=== PATIENT | female | born 1935 | race Caucasian/White ===

== ENCOUNTER 2016-12-06 13:20 | Inpatient (IN) | payer MEDICARE, OTHER ==
[~2016-12-06] VITALS: Ht 170.2 cm; Wt 82.8 kg
[2016-12-06] VITALS (7 sets, daily range): BP systolic 104–129; BP diastolic 73–95; PULSE 96–128; RESP 18–24; O2SAT 90–95
--- NOTE | 2016-12-06 14:08 | ED.REPORT ---
HPI-General Illness Date of Service Dec 06, 2016 ED Provider: Celina Valero MD 81 year old female with CHF, high cholesterol, HTN, and hypothyroidism presents to the ER accompanied by her daughter complaining of acute on chronic shortness of breath, worsening over the past 9 days. Symptoms are exacerbated by laying flat. Associated symptoms include dyspnea and dizziness with minimal exertion. Patient denies chest pain, significant lower extremity swelling, recent medication changes, history of CA, or CVA, and anticoagulant use. Followed by Dr. Wilner Mccarty, Cardiology. Nursing Notes Stated Complaint: SHORTNESS OF BREATH Chief Complaint: Dysrhythmia/Cardiac Nursing Notes Reviewed: Yes Allergies: Coded Allergies: No Known Allergies (Unverified , 12/06/16) Scheduled Amlodipine (Amlodipine) 10 Mg Tablet 10 MG PO DAILY Ascorbic Acid (Vitamin C) 1,000 Mg Tab.chew 1,000 MG PO DAILY Aspirin Chew (Aspirin Chew) 81 Mg Chew 81 MG PO HS Atenolol (Atenolol) 50 Mg Tablet 50 MG PO DAILY Cholecalciferol (Vitamin D3) (Vitamin D3) 2,000 Unit Tablet 2,000 UNIT PO DAILY Enalapril Maleate (Enalapril Maleate) 10 Mg Tablet 10 MG PO BID Levothyroxine (Levothyroxine) 50 Mcg Tablet 50 MCG PO QAM Simvastatin (Simvastatin) 40 Mg Tablet 40 MG PO HS General Time Seen by MD: 14:04 Chief Complaint Other (Shortness of Breath) Hx Obtained From: Patient Arrived By: Walk-in Sudden in Onset?: No Onset Occurred: More than a week ago... (9 days) Symptom Duration: Since onset Associated with: Reports: Dizziness, Denies: Chest pain Similar Sx Previous: Yes Past Medical History Past Medical History Notes: Hydrology Teacher: Dr. Wilner Mccarty Past Medical History Denies history of CA Reports: Congestive heart failure, Hyperlipidemia (High cholesterol), Hypertension, Denies: Stroke, Transient ischemic attack Reports: Thyroid disease (Hypothyroid) Smoking History Unknown if Ever Smoker Social History Other Social History: Good social support Ambulatory Status Independent Review of Systems Full Review of Systems Constitutional: Denies: Chills, Fever Respiratory: Reports: Shortness of breath, Denies: Non-productive cough Cardiovascular: Denies: Chest pain GI: Denies: Nausea, Vomiting Musculoskeletal: Denies: Extremity swelling Skin: Denies Diaphoresis Neurologic: Reports: Dizziness, Denies: Headache Complete sys rev & neg: except as marked. Physical Exam Vital Signs Vital Signs Date Time Temp Pulse Resp B/P Pulse Ox O2 Delivery O2 Flow Rate FiO2 12/06/16 16:25 36.8 113 22 125/95 95 Nasal Cannula 1 12/06/16 13:22 36 128 20 128/86 91 Room Air Initial VS: Reviewed Head / Eyes: Atraumatic, Normocephalic Neck: Supple, Non-tender, Full range of motion Abdomen / GI: Soft, Non-tender, No guarding, No rebound, No distention Skin: Warm, Dry, No cyanosis Neurologic: Alert, Oriented, Nonfocal General/Constitutional: Awake, Alert, No acute distress, Well appearing, Well developed, Well hydrated, Well nourished, Cooperative Respiratory / Chest: No wheezing, No stridor, No chest tenderness, No chest wall deformity Crackles in the bases bilaterally, Right > Left. Cardiovascular: Heart rate NL, No murmurs Heart Rate / Rhythm: Positive: Irreg irregular rhythm Lower Ext Edema: Positive: Bilateral 1+ Upper Extremities Upper Extremity / MS: Inspection NL, No swelling, Non-tender, No erythema, No deformity, Neurologic intact, Vascular intact, No clubbing/cyanosis Interpretation & Diagnostics Lab Results Interpretation Result Diagram: 12/06/16 1425 12/06/16 1425 Test 12/06/16 14:25 White Blood Count 14.0th/mm3 (3.8-10.1) Red Blood Count 4.80mil/mm3 (3.90-5.20) Hemoglobin 15.0g/dL (12.0-15.6) Hematocrit 44.1% (35.0-46.0) Mean Corpuscular Volume 91.9fL (81-100) Mean Corpuscular Hemoglobin 31.3pg (27.0-35.0) Mean Corpuscular Hemoglobin Concent 34.0% (32.0-37.0) Red Cell Distribution Width 13.8% (12.3-15.4) Platelet Count 194bil/L (150-400) Neutrophils (%) (Auto) 82.1% (40-74) Lymphocytes (%) (Auto) 9.6% (14-46) Monocytes (%) (Auto) 7.6% (4-12) Eosinophils (%) (Auto) 0.1% (0-5) Basophils (%) (Auto) 0.4% (0-3) Sodium Level 131mEq/L (134-144) Potassium Level 5.1mEq/L (3.5-5.2) Chloride Level 91mEq/L (97-108) Carbon Dioxide Level 18mmol/L (18-29) Blood Urea Nitrogen 16mg/dL (8-27) Creatinine 0.79mg/dL (0.57-1.00) Estimat Glomerular Filtration Rate 100mL/min (>59) Glucose Level 115mg/dL (60-99) Calcium Level 10.0mg/dL (8.5-10.1) Total Bilirubin 2.2mg/dL (0.0-1.2) Aspartate Amino Transf (AST/SGOT) 29U/L (0-50) Alanine Aminotransferase (ALT/SGPT) 18U/L (0-32) Alkaline Phosphatase 64U/L (25-165) Troponin T < 0.010ug/L (0.0-0.011) Pro-B-Type Natriuretic Peptide 4613pg/mL (0-738) Total Protein 7.8g/dL (6.4-8.4) Albumin 4.9g/dL (3.4-5.0) Thyroid Stimulating Hormone (TSH) 2.640uIU/mL (0.450-4.500) ECG Interpretation ECG Interpretation: New atrial fibrillation, rate 111 Time: 14:17 Interpreted by: ED physician X-Ray Chest Interpretation Chest Xray Interpretation: IMPRESSION: 1. Bibasilar atelectasis versus pneumonia associated with small bilateral pleural effusions. Dictated by: Elenita Dooley M.D. on 12/06/2016 at 14:34 Approved by: Elenita Dooley M.D. on 12/06/2016 at 14:35 View: Portable, 1 view Interpretation / Wet Read by: Interpret - Radiologist Re-Eval/Medical Decision Med Decision/Clinical Course Increasing shortness of breath over the last 9 days. Atrial fibrillation noted today. Bilateral pleural effusions noted. White count is elevated possibility of pneumonia is also entertained. She does not appear to be septic she does appear to be in congestive heart failure likely rate related. In the emergency department she was given IV Lasix and antibiotics were started for presumed community-acquired pneumonia. Source of Hx: Old records Time of Eval: 14:21 Re-Evaluation/Progress Note: Discussed physical examination findings and need for admission. Patient is amenable to the plan. All other questions addressed. Consultation : Consulted With: Hospitalist Call Returned at: 16:35 Regional Geodetic Advisor: Agrees with eval, Agrees with plan, Accepts admit Counseled Regarding: Diagnosis, Lab results, Need for admission Discharge & Departure Primary Impression: CHF (congestive heart failure) Additional Impressions: Bilateral pneumonia SOB (shortness of breath) New onset atrial fibrillation Ruled Out: Sepsis Disposition: ADMITTED TO HOSPITAL Discharge Condition All VS Reviewed: Yes Condition: Stable Referrals: NOPCP (PCP) Wilner Mccarty MD (Family) Jeffrey Attestation Portions of this note were transcribed by Nikolas Cruz. I, Dr. Valero, personally performed the history, physical exam and medical decision-making; I reviewed and confirmed the accuracy of the information in the transcribed note. Signed by: Jeffrey Jara, 12/06/2016 and 15:01 copies to: Wilner Mccarty MD, Shawna L MD Dec 06, 2016 14:08 NIKOLAS CRUZ Dec 06, 2016 14:13
[2016-12-06] MEDS ORDERED: Furosemide 10 mg/mL 4 mL Inj IVPUSH ONE (14:35)
--- NOTE | 2016-12-06 14:36 | DRSVH ---
PROCEDURE: X-RAY CHEST ONE VIEW, PORTABLE ([id number]) INDICATIONS: dysrhythmia TECHNIQUE: One view of the chest was acquired. COMPARISON: None. FINDINGS: Surgical changes and devices: None. Lungs and pleura: No pneumothorax. Small bilateral pleural effusions. Moderate bibasilar airspace op acity. Mediastinum: Mediastinal contours appear normal. Heart contours are not well seen. Bones and chest wall: No suspicious bony lesions. Overlying soft tissues appear unremarkable. IMPRESSION: 1. Bibasilar atelectasis versus pneumonia associated with small bilateral pleural effusions. Dictated by: Elenita Dooley M.D. on 12/06/2016 at 14:34 Approved by: Elenita Dooley M.D. on 12/06/2016 at 14:35
[2016-12-06 14:37] LABS: BASOPHILS % (AUTO) 0.4 % (0-3); EOSINOPHILS % (AUTO) 0.1 % (0-5); MONOCYTES % (AUTO) 7.6 % (4-12); Mean Corpuscular Hemoglobin 31.3 pg (27.0-35.0); Mean Corpuscular Volume 91.9 fL (81-100); NEUTROPHILS % (AUTO) 82.1 % (40-74); Platelet Count 194 bil/L (150-400)
[2016-12-06] MEDS ORDERED: cefTRIAXone Inj 2,000 MG in Dextrose 5% Minibag Plus 50 ML IV ONE (15:00)
[2016-12-06] MEDS ORDERED: Azithromycin Inj 500 MG in Dextrose 5% w/Vial Mate 250 ML IV ONE (15:00)
[2016-12-06] MEDS ORDERED: MeTOProlol 1 mg/mL 5 mL Inj IVPUSH STA (15:01)
[2016-12-06 15:06] LABS: TROPONIN T < 0.010 ug/L (0.0-0.011)
[2016-12-06] MEDS ORDERED: ASPI81TA3 PO (15:49)
[2016-12-06] MEDS ORDERED: LEVO50TA6 PO (15:49)
[2016-12-06] MEDS ORDERED: ATEN50TA PO (15:49)
[2016-12-06] MEDS ORDERED: ASCO100089 PO (15:49)
[2016-12-06] MEDS ORDERED: ENAL10TA PO (15:49)
[2016-12-06] MEDS ORDERED: SIMV40TA5 PO (15:49)
[2016-12-06] MEDS ORDERED: AMLO10TA3 PO (15:49)
[2016-12-06] MEDS ORDERED: CHOL200025 PO (15:49)
[2016-12-06] MEDS ORDERED: Ondansetron 2 mg/mL 2 mL Inj IVPUSH PRN (16:40)
[2016-12-06] MEDS ORDERED: Alum-Mag Hydrox-Simeth 30 mL Suspension PO PRN (16:40)
[2016-12-06] MEDS ORDERED: Polyethylene Glycol (PEG) 17 Gm Powder PO PRN (16:40)
--- NOTE | 2016-12-06 17:26 | NUR ---
Admission Pt arrived on [facility] to rm 3005. A/Ox3, no complains of increased pain, chest discomfrt/pressure. Reports SOB with activity. 1 L O2. Oriented to call light visiting hours. Angy, (daughter) will be ride home at discharge.
--- NOTE | 2016-12-06 17:47 | PCM.HPMED ---
Subjective Date of Service Dec 06, 2016 Primary Provider: Admitting Physician: Eljiah Ponce Primary Care Physician: Nell Lamar MD Attending Physician: Elijah Ponce Chief Complaint: Shortness of breath History of Present Illness: Claudia is a pleasant 81-year-old female with history of CHF, dilated cardiomyopathy, hypothyroidism, and hypertension who presented to the ED with complaints of progressive shortness of breath over last 2 weeks but worse in the last 5 days. She states in the past week she has felt more short of breath and lightheaded with exertion. She also reports difficulties breathing if she lays down flat to sleep, so she has been sleeping fairly upright. She has never had this problem before. She endorses some peripheral edema, but not any worse than usual. She denies any sick contact or recent illnesses, fevers, chest pain , palpitations, cough, or nausea vomiting. She reports she has been compliant with her medications and there has been no recent medication changes. She is not on any anticoagulation or diuretics or oxygen at home. In the ER, she was noted to be in an Atrial fibrillation rhythm with rate in the 120s. She was normotensive and afebrile, but did require 1 L of Oxygen by NC to maintain 95% saturations. There were some bibasilar opacities noted on CXR and her CBC showed elevated WBC and PMNs%, so she was started on IV Ceftriaxone and Azithromycin for presumed CAP tx. Review of Systems: 12 Point ROS negative except as stated in the HPI Allergies Coded Allergies: No Known Allergies (Unverified , 12/06/16) Home Medications Per [facility] Records Atenolol 50 mg 1 tab by mouth daily Enalapril 10 mg 1 tablet by mouth twice a day Amlodipine 2.5 mg 1 tab by mouth daily Aspirin 81 mg 1 tablet daily Levoxyl 50 mcg 1 tab daily Simvastatin 40 mg 1 tab daily at bedtime PMH Congestive heart failure -biventricular Mitral valve insufficiency Hyperlipidemia Dyspnea Dilated cardiomyopathy Hypothyroidism History of paroxysmal ventricular tachycardia Surgical History Denies any surgical history Family History Denies any family history of heart disease or diabetes Social History Occupation: retired Hx Alcohol Use: No (she denied any alcohol on this examination, although it is noted she does drink alcohol by the ER physician) Hx Substance Use: No Hx Tobacco Use: No Smoking Status: Unknown if Ever Smoker Living Arrangement: Alone (in [place]) Exam Vital Signs Vital Sign - Last Date Time Temp Pulse Resp B/P Pulse Ox O2 Delivery O2 Flow Rate FiO2 12/06/16 16:25 36.8 113 22 125/95 95 Nasal Cannula 1 Exam GEN: Well-developed elderly female who appears in mild respiratory distress while sitting upright, cooperative, speaking full sentences HEENT: Atraumatic, PERRLA, EOMI, oropharynx moist and pink Neck: Soft, trachea midline, JVD noted to the angle of the jaw CV: Irregular rate and rhythm, mild systolic murmur, peripheral radial pulses intact and equal Respiratory: Bibasilar crackles, coarse distant lung sounds, no wheezing, mildly increased work of breathing sitting upright, no accessory muscle usage Abd: Soft, nontender, nondistended, normoactive bowel sounds noted MSK: Muscle strength grossly intact and equal, no joint erythema Neuro: Alert and oriented, grossly intact, no focal weakness Extremities: 2+ pitting edema of both feet up to mid rizzo, both feet cold to touch Skin: Warm, dry, intact Psych: Appropriate mood and affect Lab and Diagnostics Result Diagram: 12/06/16 1425 12/06/16 1425 X-Rays, CTs and MRIs CXR 1 view IMPRESSION: 1. Bibasilar atelectasis versus pneumonia associated with small bilateral pleural effusions. Assessment & Plan pleasant 81-year-old female with history of CHF, dilated cardiomyopathy, hypothyroidism, and hypertension who presented to the ED with complaints of progressive shortness of breath over last 2 weeks but worse in the last 5 days. She is also found to have new onset atrial fibrillation. This could be the trigger for her CHF because she denies ever having atrial fibrillation before. Will be admitted for diuresis and management of her atrial fibrillation and CHF. #Likely acute on chronic exacerbation of CHF, POA Her last echocardiogram in 2014 noted moderately dilated left ventricle with LVEF of 45-50%, is also scarring and akinesis of the posterior wall, severely dilated left atrium, severe mitral regurg, moderate tricuspid regurg, restrictive filling pattern of the left ventricle. 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 Wilner Mccarty. Likely exacerbation is due to progression of her disease and restrictive filling pattern and atrial fibrillation. Patient has not been using diuretics, so we will start off with 40 mg of IV Lasix daily We will continue her IV antibiotics for now and repeat a chest x-ray tomorrow with further labs to assess whether she has pneumonia. No blood cultures were drawn prior to Abx start. Continue to closely monitor I's and O's and daily weight DuoNeb BID prn SOB We will obtain echocardiogram, lipid panel, TSH #New-onset atrial fibrillation with RVR, POA Patient was found to be in atrial fibrillation rate in the 120s in the ED, her rate did decrease with IV metoprolol 5mg We will place on telemetry for CV monitoring We will continue patient's metoprolol at 50 mg daily We will have IV metoprolol 5 mg prn heart rate > 120 consistently #Hypertension, POA We will continue her beta homer and enalapril and amlodipine We will continue her daily baby aspirin #Hyperlipidemia, POA We will continue her daily statin #Hypothyroidism, POA -We will continue her Levoxyl 50 mcg after we obtain TSH and free T4 Tylenol prn pain Zofran prn nausea Restoril prn insomnia Bowel regimen prn constipation CODE STATUS: Discussed with patient and she would like to be full code Dispo: Due to patient's medical complexity, she will require at least 2 minutes for stabilization and treatment Pain Evaluation: Adequate Pain Control VTE Prophylaxis: Theraputic Anticoag with Warfarin, SCDs Resuscitation Status: CPR: Attempt Resuscitation Attending Statement The patient was seen and examined together with Resident/House-staff on 12/06/16 and I agree with the history, exam and plan as outlined in the note above. Brandt Worrell DO Dec 06, 2016 17:47 Elijah Ponce Dec 07, 2016 18:03
[2016-12-06] MEDS ORDERED: Albuterol-Ipratropium 3 mL Inhalation Solution NEB PRN (18:25)
[2016-12-06] MEDS ORDERED: MeTOProlol 1 mg/mL 5 mL Inj IVPUSH PRN (18:30)
[2016-12-06 18:45] LABS: Magnesium 1.7 mg/dL (1.6-2.6)
[2016-12-07] VITALS (11 sets, daily range): BP systolic 114–140; BP diastolic 62–84; PULSE 80–123; RESP 16–20; O2SAT 91–95
[2016-12-07] MEDS: Sodium Chloride LOK Flush 10 mL Syringe IVFLUSH SCH ×3 (00:35→16:33)
[2016-12-07] MEDS: Heparin 5,000 Unit/mL Inj SUBQ SCH ×2 (00:36→07:58)
[2016-12-07 02:48] LABS: APPEARANCE,URINE CLEAR (CLEAR,HAZY); COLOR,URINE YELLOW (YELLOW); OCCULT BLOOD,URINE NEGATIVE (NEGATIVE); UROBILINOGEN,URINE NORMAL (NORMAL)
--- NOTE | 2016-12-07 05:44 | NUR ---
PT ACTIVITY Pt has been up to BR x 2 during shift. Pt denies dizziness. Pt steady on feet. Pt minimal SBA. Pt states she is "a little" SOB when walking back to bed from BR. Pt states she does not feel significantly better from when she initially arrived to hospital. Continue to monitor. Call light in reach. Intentional rounding.
[2016-12-07] MEDS: Ascorbic Acid 500 mg Tablet PO SCH (07:57)
[2016-12-07 08:06] LABS: BASOPHILS % (AUTO) 0.2 % (0-3); EOSINOPHILS % (AUTO) 0.6 % (0-5); MONOCYTES % (AUTO) 9.9 % (4-12); Mean Corpuscular Volume 93.1 fL (81-100); NEUTROPHILS % (AUTO) 74.6 % (40-74); Platelet Count 213 bil/L (150-400)
[2016-12-07] MEDS ORDERED: Furosemide 10 mg/mL 4 mL Inj IVPUSH SCH (08:30)
--- NOTE | 2016-12-07 08:53 | DRSVH ---
PROCEDURE: X-RAY CHEST, TWO VIEWS ([id number]) INDICATIONS: SHORTNESS OF BREATH TECHNIQUE: 2 views of the chest were acquired. COMPARISON: [facility], CR, XR CHEST 1VW (PORTABLE), 12/06/2016, 13:56. FINDINGS: Surgical changes and devices: None. Lungs and pleura: No pneumothorax. Small bilateral pleural effusions. Moderate bibasilar airspace op acities redemonstrated. Interstitium is prominent. Mediastinum: Mediastinal contours appear normal. Heart contours are not well seen. Bones and chest wall: No suspicious bony lesions. Overlying soft tissues appear unremarkable. IMPRESSION: Small pleural effusions and bibasilar airspace opacities redemonstrated likely related to pneumonia. Given interstitial prominence, mild developing edema cannot be excluded. Dictated by: Paras AGUILAR Interpreted: Deedee Mg MD on 12/07/2016 at 8:51 Transcribed by: TORSTEN on 12/07/2016 at 8:52 Approved by: Deedee Mg M.D. on 12/07/2016 at 16:34
[2016-12-07 08:58] LABS: INR 1.12 ratio
--- NOTE | 2016-12-07 09:29 | PCM.PNMED ---
Subjective Date of Service Dec 07, 2016 Subjective Uneventful overnight. Her rates were pretty well controlled. Reports her breathing is about the same this morning. Has not noticed any fevers, CP, abd pain, or diarrhea. Exam Vital Signs Vital Sign - Last Date Time Temp Pulse Resp B/P Pulse Ox O2 Delivery O2 Flow Rate FiO2 12/07/16 05:36 81 120/79 12/07/16 05:33 36.4 20 94 Nasal Cannula 1.00 Intake and Output 12/06/16 12/06/16 12/07/16 Cumulative From/Thru 15:00 23:00 07:00 12/06/16 13:22 - 12/07/16 05:39 Intake Total 250 ml 350 ml 600 ml Output Total 550 ml 550 ml Balance 250 ml -200 ml 50 ml Intake Oral 250 ml 350 ml 600 ml Output Urine Total 550 ml 550 ml # Voids 1 1 # Bowel Movements 0 0 Exam GEN: Well-developed elderly female who appears in mild respiratory distress while sitting upright, cooperative, speaking full sentences Neck: JVD noted to the angle of the jaw CV: Irregular rate and rhythm Respiratory: Mild Bibasilar crackles, coarse distant lung sounds, no wheezing, mildly increased resp effort when conversing Abd: Soft, normoactive bowel sounds noted Neuro: Alert and oriented Extremities: 1+ pitting edema of both feet up to ankles, both feet cold to touch Skin: Warm, dry, intact Psych: Appropriate mood and affect IVs and Medications Medications Reviewed: Medications were reviewed in detail Lab and Diagnostics Result Diagram: 12/06/16 1425 12/07/16 0550 X-Rays, CTs and MRIs CXR 1 view IMPRESSION: 1. Bibasilar atelectasis versus pneumonia associated with small bilateral pleural effusions. Assessment & Plan pleasant 81-year-old female with history of CHF, dilated cardiomyopathy, hypothyroidism, and hypertension who presented to the ED with complaints of progressive shortness of breath over last 2 weeks but worse in the last 5 days. She is also found to have new onset atrial fibrillation. This could be the trigger for her CHF because she denies ever having atrial fibrillation before. Will be admitted for diuresis and management of her atrial fibrillation and CHF. #Likely acute on chronic exacerbation of CHF, POA Her last echocardiogram in 2014 noted moderately dilated left ventricle with LVEF of 45-50%, is also scarring and akinesis of the posterior wall, severely dilated left atrium, severe mitral regurg, moderate tricuspid regurg, restrictive filling pattern of the left ventricle. 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 Wilner Mccarty. Exacerbation is likely due to progression of her disease and restrictive filling pattern and atrial fibrillation. Patient has not been using diuretics, so we will start off with 40 mg of IV Lasix daily Repeat CXR more similar to an edema picture and repeat Procalcitonin benign. Will discontinue antibiotics. Continue to closely monitor I's and O's and daily weight DuoNeb BID prn SOB Lipid panel WNL, TSH WNL Will discontinue Lasix due to increasing Creatinine. Plan for road testing and PT eval also. ECHO pending #New-onset atrial fibrillation with RVR, POA Patient was found to be in atrial fibrillation rate in the 120s in the ED, her rate did decrease with IV metoprolol 5mg We will place on telemetry for CV monitoring We will continue patient's metoprolol Xl at 25mg BID We will have IV metoprolol 5 mg prn heart rate > 100 consistently Rate well controlled with Metoprolol, continues to be in Afib. Patient would like to initiate anticoagulation while in the hospital. Discussed with patient risks and side effects. MARY-vasc score of 5 with no bleeding history. #Hypertension, POA We will continue her beta homer and enalapril and amlodipine We will continue her daily baby aspirin Well controlled overnight #Hyperlipidemia, POA We will continue her daily statin #Hypothyroidism, POA -We will continue her Levoxyl 50 mcg tomorrow Tylenol prn pain Zofran prn nausea Restoril prn insomnia Bowel regimen prn constipation CODE STATUS: Discussed with patient and she would like to be full code Dispo: Due to patient's medical complexity, she will require at least 2 midnights for stabilization and treatment Pain Evaluation: Adequate Pain Control VTE Prophylaxis: Sub-Q Heparin (Unfractionated), SCDs Resuscitation Status: CPR: Attempt Resuscitation Attending Statement The patient was seen and examined together with Resident/House-staff on 12/07/16 and I agree with the history, exam and plan as outlined in the note above. Brandt Worrell DO Dec 07, 2016 07:36 Elijah Ponce Dec 07, 2016 18:06
--- NOTE | 2016-12-07 12:31 | NUR ---
Social Work-initial assessment: Data:See initial assessment. Pt is a 79 y/o female who was admitted on 12/06/16 for A typical pneumonia per H&P. Pt's insurance is [employer] and PCP is Hon Anaid DO. EMR reviewed. PT's readmission score is 3-high risk. YASMIN met with pt at bedside to discuss discharge planning, SW role explained. Pt is alert and oriented x3. Pt resides at home alone in a mobile home in [place] where she remains independent with ADLS. Pt does not use any DME at home and drives. Pt has no HH or SNF history. 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 SW also discussed DPOA/ advanced directive, pt confirms she has completed this paperwork, SW requested pt to bring a copy into the hospital. would like SW to check pt's benefits for RX. SW asked pt which pharmacy she uses and she states it is [facility] in [place]. SW provided RX to UR specialist and requested she call and find out co-pay for prescription. PT evaluation is pending. SW to follow up post PT to determine needs. Pt states she has enough help at home and her daughter will provide transport home at discharge. SW provided phone number and plan on white board in room. SW will continue to follow. Assessment:Pt who is independent at baseline. Plan:Pt to likely discharge home when medically stable via POV. PT evaluation is pending, R/O any needs post PT. UR specialist working on checking pt's benefits for RX for home. YASMIN will continue to follow. AVERY Zurita Addendum: 12/07/16 at 1240 by KIMBERLEY GONZALEZ Amended: Links added. Addendum: 12/07/16 at 1241 by KIMBERLEY PRUETT SS Correction: PCP is Dr. Brianda MD.
--- NOTE | 2016-12-07 13:34 | NUR ---
Called [facility] in [place] and faxed prescription over. Let pharmacy staff know I did not need these filled just run for copay amounts. Addendum: 12/07/16 at 1438 by GABRIELLE SANCHEZ Pharmacy returned fax with call and the medications are costed as follows: 1: 88.50 2: 164.71 3: 114.97
--- NOTE | 2016-12-07 15:55 | NUR ---
Social Work-continued d/c planning: Data:EMR Reviewed. Pt is a 81 y/o female who was admitted for new onset AFIB and is on day one of hospitalization. MD anticipates 2-3 more days of hospitalization. SW reviewed PT notes and pt ambulated 175ft, cleared to return home with no needs. YASMIN updated by UR specialist regarding cost for medications for [facility] in [place], 1. xarelto- $88.50 2. Pradaxa $164.71 and 3. Eliquis $114.97. SW followed up with pt and daughter Angy at bedside and provided them with information on cost for medication, provided them with information. Pt is agreeable to cost, but would like further information from MD regarding medications. SW also updated on PT recommendations, pt and daughter agreeable. SW asked MD to follow up with pt and daughter on information, MD agreeable. Pt's daughter to provide transport home at discharge.SW to update Pharmacy on which medication pt does end up going out on. SW will continue to follow. Assessment:Pt who is independent at baseline. Plan:Pt to discharge home when medically stable via POV. SW to update Pharmacy on which medication pt does end up going out on. SW will continue to follow. AVERY Zurita
--- NOTE | 2016-12-07 16:49 | DRSVH ---
[facility] [address] [place] [address] Echocardiogram Report Name: MADELINE WINSTON Study Date: 12/07/2016 Height: 67 in Hospital Exam Location: [facility] Weight: 183 lb Gender: Female BSA: 1.9 m2 : 1935 Age: 81 yrs BP: 120/79 mm Hg Reason For Study: Atrial fibrillation Ordering Physician: HOSPITALIST [facility] Performed By: Lilo Olivera Referring Physician: Wilner Mccarty Interpretation Summary Left ventricular systolic function is moderately reduced with the ejection fraction visually estimated to be 35-40% with mild global hypokinesis that is slightly worse compared to the previous study and akinesis and scarring of the majority of the inferolateral wall extending to the apex that is unchanged. Diastolic function could not be accurately assessed due to atrial fibrillation but the E/e' ratio is moderately increased, suggesting possible increased filling pressures, perhaps slightly higher compared to the previous study. The right ventricle is normal size and right ventricular systolic function is mild to moderately reduced and appears less dynamic compared to the previous study. There is moderate-severe pulmonary hypertension with the right ventricular systolic pressure estimated at 59 mmHg assuming a right atrial pressure of 8 mm Hg, and is likley slightly higher compared to the previous study. The left atrium is severely dilated and the right atrium is mild to moderately dilated. The right atrium has mildly increased in size since the prior echo exam. There is moderate to severe mitral regurgitation and moderate tricuspid regurgitation that are unchanged compared to the previous study. There are moderate-sized bilateral pleural effusions that are new compared to the previous study. The patient was in atrial fibrillation which is new with heart rates between 81-122 bpm which is considerably faster compared to the previous study. Procedure: A two-dimensional transthoracic echocardiogram with color flow and Doppler was performed. The study quality was technically adequate. Comparison is made with the echocardiogram of 11/20/2014. The patient was in atrial fibrillation with heart rates between 81-122 bpm during the exam. The patient had occasional PVCs during the exam. This is new and heart rate is considerably faster compared to the previous study. Left Ventricle: The left ventricle is normal in size. There is normal left ventricular wall thickness. Left ventricular systolic function is moderately reduced. The ejection fraction is estimated to be 35-40%. Compared to the prior exam, left ventricular function is slightly decreased. There is mild global hypokinesis of the left ventricle. This is slightly worse compared to the previous study. There is akinesis and scarring of the majority of the inferolateral wall extending to the apex and is unchanged. Diastolic function could not be accurately assessed due to atrial fibrillation. The E/E' ratio is moderately increased, suggesting possible increased filling pressures. This is perhaps slightly compared to the previous study. Right Ventricle: The right ventricle is normal size. Right ventricular systolic function is mild to moderately reduced. This is less dynamic compared to the previous study. Atria: The left atrium is severely dilated. The right atrium is mild to moderately dilated. The right atrium has mildly increased in size since the prior echo exam. There is no Doppler evidence for an interatrial shunt. Mitral Valve: The mitral valve leaflets appear mildly thickened, but open well. There is moderate to severe mitral regurgitation. This is unchanged compared to the previous study. Aortic Valve: The aortic valve is trileaflet. The aortic valve is slightly calcified. The aortic valve opens well. No aortic regurgitation is present. Tricuspid Valve: The tricuspid valve leaflets are thin and pliable. There is moderate tricuspid regurgitation. This is unchanged compared to the previous study. There is moderate-severe pulmonary hypertension. The right ventricular systolic pressure is estimated at 59 mmHg assuming a right atrial pressure of 8 mm Hg. This is likley slightly higher compared to the previous study. Pulmonic Valve: The pulmonic valve is normal in structure and function. There is a trace or physiologic amount of pulmonic regurgitation. Great Vessels: The aortic root is normal size. The ascending aorta is normal in size. The aortic arch could not be visualized. The IVC is of normal diameter and collapses less than 50% with a sniff. This suggests a right atrial pressure of 8 mm Hg. Pericardium/ Pleura There is no pericardial effusion. There are moderate- sized bilateral pleural effusions noted. This is new compared to the previous study. MMode/2D Measurements & Calculations LVIDd: 5.4 cm LA dimension: 4.8 cm RA long axis LVOT diam LVIDs: 4.5 cm FS: 17.6 % LA A2 area: 25.6 cm RA area AoV Opening EPSS: 0.83 cm LA A4 area: 24.7 cm IVSd: 0.91 cm LA length (vol): 5.5 cm: 23.3 cm Ao root diam LVPWd: 0.71 cm LA vol: 98.2 ml RA vol LA vol index : 75.1 ml Aortic Jxn RA : 38.6 mm2 asc Aorta IVC diam: 1.8 cm Diam: 2.9 cm LV pino. diameter/BSA LV sys. diameter/BSA RVD1 (basal) TAPSE: 1.3 cm (cm/m^2): 2.8 (cm/m^2): 2.3 Doppler Measurements & Calculations Ao V2 max MV E max timur Med Peak E' Timur TR max timur : 110.9 cm/sec : 123.3 cm/sec : 357.1 cm/sec Ao max PG E/E' med: 23.8 TR max PG : 4.9 mmHg MR ERO: 0.16 cm2 : 51.2 mmHg Ao mean PG PA V2 max : 52.4 cm/sec LVOT Max Timur PA mean PG : 55.1 cm/sec : 0.59 mmHg PA Accel Time GREER(I,D): 1.6 cm : 0.07 sec sev ratio MV dec time Ao V2 mean LV V1 max PG MR flow rate : 0.24 sec : 74.9 cm/sec : 83.6 cm3/sec Ao V2 VTI: 18.8 cm LV V1 VTI MR PISA radius GREER(V,D): 1.4 cm2 : 10.4 cm PA V2 mean GREER indexed to BSA : 35.8 cm/sec (cm^2/m^2): 0.81 Reading Physician:04:48 PM
--- NOTE | 2016-12-07 18:17 | NUR ---
Uneventful Pt has been pleasant and cooperative with care, uses call light appropriately. A/O x3, titrated off O2 per RT, and is tolerating well with the exception of ambulation at which pt gets SOB. Pt currently resting comfortably in bed with call light within reach, bed low and locked, intentional rounding.
[2016-12-08] VITALS (7 sets, daily range): BP systolic 126–138; BP diastolic 74–88; PULSE 83–104; RESP 16–18; O2SAT 92–94
[2016-12-08] MEDS: Sodium Chloride LOK Flush 10 mL Syringe IVFLUSH SCH ×2 (00:37→10:00)
--- NOTE | 2016-12-08 05:06 | NUR ---
PT ACTIVITY Pt has remained in room during night, slept intermittently. Pt has been up to BR, independent, steady on feet. Pt still complains of some SOB w/ activity. Pt has been able to maintain adequate oxygenation on RA. Continue to monitor. Call light in reach. Intentional rounding.
[2016-12-08 06:24] LABS: BASOPHILS % (AUTO) 0.6 % (0-3); EOSINOPHILS % (AUTO) 2.2 % (0-5); Mean Corpuscular Hemoglobin 31.4 pg (27.0-35.0); Mean Corpuscular Volume 92.9 fL (81-100); NEUTROPHILS % (AUTO) 57.7 % (40-74); Platelet Count 215 bil/L (150-400)
--- NOTE | 2016-12-08 09:23 | PCM.DIMED ---
Discharge Instructions Date of Service Dec 08, 2016 Dates of Hospitalization Dec 06, 2016 at 16:48 Discharge Diagnosis Discharge Diagnosis #Likely acute on chronic exacerbation of CHF, Resolved #New-onset atrial fibrillation with RVR - rate controlled, on Xarelto #moderate-severe pulmonary hypertension as demonstrated on echocardiogram #Hypertension, #Hyperlipidemia #Hypothyroidism # SIADH Medication Instructions Please take the Xarelto for your anticoagulation daily. Please note that we have changed you over to Metoprolol to help with controlling the heart rate with your atrial fibrillation Please continue taking your other medications as prescribed. Please make sure to drink <1.5L of water daily in order to treat you SIADH and low sodium Diet Heart Healthy (Low sodium) Activity No restrictions Call your provider Fever or Chills, Shortness of breath, Chest pain, Weakness (unilateral) Patient Instructions Please follow up with your bulb assembler within 1-2 weeks Please follow up with your PCP also. If you have increasing SOB or CP, please return to ER for evaluation. Follow-up Provider: Nell Lamar MD Follow-up with PCP in: 1 week Provider: Wilner Mccarty MD Follow-up in: 1 week Brandt Worrell DO Dec 08, 2016 09:23
[2016-12-08] MEDS ORDERED: RIVA15TA PO ×2 (09:27→10:13)
[2016-12-08] MEDS ORDERED: METO25TA6 PO ×2 (09:27→10:13)
[2016-12-08] MEDS: Ascorbic Acid 500 mg Tablet PO SCH (09:59)
[2016-12-08 10:16] LABS: OSMOLALITY, URINE 403 mOs/kH2O (250-1200)
--- NOTE | 2016-12-08 10:17 | NUR ---
Social Work-readiness for discharge: Data:EMR Reviewed. Pt is a 81 y/o female who was admitted for new onset AFIB and is on day one of hospitalization. MD anticipates later today or tomorrow. SW reviewed PT notes and pt ambulated 175ft, cleared to return home with no needs. SW had updated pt and daughter on cost and they are agreeable. MD states they have decided on Xeralto. UR specialist called [facility] and asked them to fill medication. Pt's daughter to provide transport home at discharge. SW will continue to follow. Assessment:Pt who is independent at baseline. Plan:Pt to discharge home when medically stable via POV. [facility] has been updated on medication to fill. SW will continue to follow. AVERY Zurita
--- NOTE | 2016-12-08 10:18 | NUR ---
Called and spoke with [facility] in [place] they have received the script for Xeralto and Metoprol and they will fill now as patient is ready for discharge and has orders. Updated APPELLATE COURT CLERK
--- NOTE | 2016-12-08 10:19 | NUR ---
Social Work- discharge: Data:EMR Reviewed. Pt is a 81 y/o female who was admitted for new onset AFIB.Pt is ready to discharge home today. SW reviewed PT notes and pt ambulated 175ft, cleared to return home with no needs. SW had updated pt and daughter on cost and they are agreeable. states they have decided on Xarelto. UR specialist called [facility] and asked them to fill medication. No other discharge needs. Pt's daughter to provide transport home at discharge.All updated and agreeable to plan. Assessment:Pt who is independent at baseline. Plan:Pt to discharge home when medically stable via POV. No other discharge needs identified. All updated and agreeable to plan. AVERY Zurita
[2016-12-08] MEDS ORDERED: RIVA20TA PO (10:25)
--- NOTE | 2016-12-08 11:34 | NUR ---
Discharge Patient discharge to home with all belongings at 1120. Explained to patient new medications (metoprolol and Xarelto), when next medications are due, and discharge instructions. Patient verbalized understanding. Dc'd IV intact. Dc'd telemetry. Vitals stable. Patient left floor via wheelchair accompanied by daughter and HIDE SPREADER with no signs of distress.
--- NOTE | 2016-12-08 11:46 | PCM.DC.MED ---
Discharge Summary Date of Service Dec 08, 2016 Dates of Hospitalization Date of Hospital Admission Dec 06, 2016 at 16:48 Date of Discharge: Dec 08, 2016 Providers: Admitting Physician: Elijah Ponce Primary Care Physician: Nell Lamar MD Attending Physician: Elijah Ponce Diagnosis at Time of Discharge Diagnosis at Time of Discharge #Likely acute on chronic exacerbation of CHF, Resolved #New-onset atrial fibrillation with RVR - rate controlled, on Xarelto #moderate-severe pulmonary hypertension as demonstrated on echocardiogram #Hypertension, #Hyperlipidemia #Hypothyroidism # SIADH Procedures XRay, CTs & MRIs CXR 1 view IMPRESSION: 1. Bibasilar atelectasis versus pneumonia associated with small bilateral pleural effusions. Cardiac Echo Impression Interpretation Summary Left ventricular systolic function is moderately reduced with the ejection fraction visually estimated to be 35-40% with mild global hypokinesis that is slightly worse compared to the previous study and akinesis and scarring of the majority of the inferolateral wall extending to the apex that is unchanged. Diastolic function could not be accurately assessed due to atrial fibrillation but the E/e' ratio is moderately increased, suggesting possible increased filling pressures, perhaps slightly higher compared to the previous study. The right ventricle is normal size and right ventricular systolic function is mild to moderately reduced and appears less dynamic compared to the previous study. There is moderate-severe pulmonary hypertension with the right ventricular systolic pressure estimated at 59 mmHg assuming a right atrial pressure of 8 mm Hg, and is likley slightly higher compared to the previous study. The left atrium is severely dilated and the right atrium is mild to moderately dilated. The right atrium has mildly increased in size since the prior echo exam. There is moderate to severe mitral regurgitation and moderate tricuspid regurgitation that are unchanged compared to the previous study. There are moderate-sized bilateral pleural effusions that are new compared to the previous study. The patient was in atrial fibrillation which is new with heart rates between 81-122 bpm which is considerably faster compared to the previous study. Brief History Claudia is a pleasant 81-year-old female with history of CHF, dilated cardiomyopathy, hypothyroidism, and hypertension who presented to the ED with complaints of progressive shortness of breath over last 2 weeks but worse in the last 5 days. She states in the past week she has felt more short of breath and lightheaded with exertion. She also reports difficulties breathing if she lays down flat to sleep, so she has been sleeping fairly upright. She has never had this problem before. She endorses some peripheral edema, but not any worse than usual. She denies any sick contact or recent illnesses, fevers, chest pain , palpitations, cough, or nausea vomiting. She reports she has been compliant with her medications and there has been no recent medication changes. She is not on any anticoagulation or diuretics or oxygen at home. In the ER, she was noted to be in an Atrial fibrillation rhythm with rate in the 120s. She was normotensive and afebrile, but did require 1 L of Oxygen by NC to maintain 95% saturations. There were some bibasilar opacities noted on CXR and her CBC showed elevated WBC and PMNs%, so she was started on IV Ceftriaxone and Azithromycin for presumed CAP tx. Hospital Course pleasant 81-year-old female with history of CHF, dilated cardiomyopathy, hypothyroidism, and hypertension who presented to the ED with complaints of progressive shortness of breath over last 2 weeks but worse in the last 5 days. She is also found to have new onset atrial fibrillation. This could be the trigger for her CHF because she denies ever having atrial fibrillation before. She was admitted for diuresis and management of her atrial fibrillation and CHF.She continued to be in Afib during hospital admission, but fairly decently rate controlled with Metoprolol. She also chose Xarelto for easier anticoagulation upon discharge. Her SOB improved throughout the admission after being diureses. She was also noted to be hyponatremic persistently, and a workup was done that was consistent with SIADH. This is felt to be likely due to her heart and lung disease. She was discharged in good condition when her sob improved and her HR was well controlled. She was given short interval follow up and instructions. #Likely acute on chronic exacerbation of CHF, POA Her last echocardiogram in 2014 noted moderately dilated left ventricle with LVEF of 45-50%, is also scarring and akinesis of the posterior wall, severely dilated left atrium, severe mitral regurg, moderate tricuspid regurg, restrictive filling pattern of the left ventricle. 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 Wilner Mccarty. Exacerbation is likely due to progression of her disease and restrictive filling pattern and atrial fibrillation. Patient has not been using diuretics, so we only gave her 40 mg of IV lasix daily. Repeat CXR more similar to an edema picture and repeat Procalcitonin benign. She was felt to not be infected, so she did not receive abx. Continue to closely monitor I's and O's and daily weight DuoNeb BID prn SOB Lipid panel WNL, TSH WNL Will discontinue Lasix due to increasing Creatinine.Passed her road testing and did not require oxygen. ECHO results as above. #moderate-severe pulmonary hypertension as demonstrated on echocardiogram -Likely is contributing to her fluid congestion and SOB. #New-onset atrial fibrillation with RVR, POA Patient was found to be in atrial fibrillation rate in the 120s in the ED, her rate did decrease with IV metoprolol 5mg We will place on telemetry for CV monitoring We will continue metoprolol 25mg BID We had IV metoprolol 5 mg prn heart rate > 100 consistently Rate well controlled with Metoprolol, continues to be in Afib but asymptomatic Patient would like to initiate anticoagulation while in the hospital. Discussed with patient risks and side effects. MARY-vasc score of 5 with no bleeding history. Started on Xarelto #Hypertension, POA We will continue her beta homer and enalapril and amlodipine We will continue her daily baby aspirin Well controlled overnight #Hyperlipidemia, POA We will continue her daily statin #Hypothyroidism, POA -We will continue her Levoxyl 50 mcg tomorrow Exam Vital Signs (Last) Date Time Temp Pulse Resp B/P Pulse Ox O2 Delivery O2 Flow Rate FiO2 12/08/16 10:38 36.3 104 18 138/81 92 Room Air 12/07/16 05:33 1.00 Exam GEN: Well-developed elderly female who appears in mild respiratory distress while sitting upright, cooperative, speaking full sentences CV: Irregular rate and rhythm Respiratory: Mild Bibasilar rales, no wheezing, normal resp effort Abd: Soft, normoactive bowel sounds noted Neuro: Alert and oriented Extremities: 1+ pitting edema of both feet up to ankles, both feet cold to touch Skin: Warm, dry, intact Psych: Appropriate mood and affect Test 12/06/16 14:25 12/07/16 02:25 12/07/16 05:50 12/07/16 08:10 Hemoglobin A1c 5.3% (4.8-5.6) Magnesium Level 1.7mg/dL (1.6-2.6) Total Bilirubin 2.2mg/dL (0.0-1.2) Aspartate Amino Transf (AST/SGOT) 29U/L (0-50) Alanine Aminotransferase (ALT/SGPT) 18U/L (0-32) Alkaline Phosphatase 64U/L (25-165) Pro-B-Type Natriuretic Peptide 4613pg/mL (0-738) Total Protein 7.8g/dL (6.4-8.4) Thyroid Stimulating Hormone (TSH) 2.640uIU/mL (0.450-4.500) Urine Color Yellow (YELLOW) Urine Appearance Clear (CLEAR,HAZY) Urine pH 5.0 (5.0-8.0) Urine Specific [place] 1.020 (1.003-1.035) Urine Protein Negativemg/dL (NEG,TRACE) Urine Glucose (UA) Negativemg/dL (NEGATIVE) Urine Ketones Negativemg/dL (NEGATIVE) Urine Occult Blood Negative (NEGATIVE) Urine Nitrite Negative (NEGATIVE) Urine Bilirubin Negative (NEGATIVE) Urine Urobilinogen Normalmg/dL (NORMAL) Urine Leukocyte Esterase Negative (NEGATIVE) Urine RBC 0-2/hpf (0-2) Urine WBC 0-5/hpf (0-5) Urine Epithelial Cells Few/hpf (NONE-MOD) Urine Crystals None seen (NONE SEEN) Urine Bacteria None/hpf (NONE-FEW) Urine Hyaline Casts None/lpf (NONE) Urine Granular Casts None seen (NONE SEEN) Urine Waxy Casts None seen (NONE SEEN) Urine Red Blood Cell Casts None seen (NONE SEEN) Urine White Blood Cell Casts None seen (NONE SEEN) Urine Mucus None seen (None Seen) Urine Trichomonas None seen (NONE SEEN) Urine Yeast None (NONE SEEN) Urine Culture Reflexed Not indicated Urine Osmolality 403mOs/kH2O (250-1200) Urine Random Sodium 75mEq/L Phosphorus Level 5.0mg/dL (2.5-4.9) Troponin T 0.010ug/L (0.0-0.011) Albumin 4.4g/dL (3.4-5.0) Triglycerides Level 80mg/dL (0-149) Cholesterol Level 108mg/dL (100-199) LDL Cholesterol, Calculated 37.000mg/dL (0-99) VLDL Cholesterol 16.000mg/dL HDL Cholesterol 55mg/dL (>39) Cholesterol/HDL Ratio 1.96 (0.0-4.4) Procalcitonin 0.05ng/mL (0.00-0.08) Prothrombin Time 12.0sec (8.1-12.5) Prothromb Time International Ratio 1.12ratio Test 12/08/16 05:37 12/08/16 10:35 White Blood Count 9.1th/mm3 (3.8-10.1) Red Blood Count 4.21mil/mm3 (3.90-5.20) Hemoglobin 13.2g/dL (12.0-15.6) Hematocrit 39.1% (35.0-46.0) Mean Corpuscular Volume 92.9fL (81-100) Mean Corpuscular Hemoglobin 31.4pg (27.0-35.0) Mean Corpuscular Hemoglobin Concent 33.8% (32.0-37.0) Red Cell Distribution Width 13.5% (12.3-15.4) Platelet Count 215bil/L (150-400) Neutrophils (%) (Auto) 57.7% (40-74) Lymphocytes (%) (Auto) 24.2% (14-46) Monocytes (%) (Auto) 15.0% (4-12) Eosinophils (%) (Auto) 2.2% (0-5) Basophils (%) (Auto) 0.6% (0-3) Sodium Level 131mEq/L (134-144) Potassium Level 3.6mEq/L (3.5-5.2) Chloride Level 90mEq/L (97-108) Carbon Dioxide Level 21mmol/L (18-29) Blood Urea Nitrogen 17mg/dL (8-27) Creatinine 0.88mg/dL (0.57-1.00) Estimat Glomerular Filtration Rate 88mL/min (>59) Glucose Level 104mg/dL (60-99) Osmolality 270 (275-300) Calcium Level 9.5mg/dL (8.5-10.1) Hold Urine Received (Received) Discharge Medications Discharge Medications Amlodipine (Amlodipine) 10 Mg Tablet 10 MG PO DAILY (Reported) Ascorbic Acid (Vitamin C) 1,000 Mg Tab.chew 1,000 MG PO DAILY (Reported) Aspirin Chew (Aspirin Chew) 81 Mg Chew 81 MG PO HS (Reported) Cholecalciferol (Vitamin D3) (Vitamin D3) 2,000 Unit Tablet 2,000 UNIT PO DAILY (Reported) Enalapril Maleate (Enalapril Maleate) 10 Mg Tablet 10 MG PO BID (Reported) Levothyroxine (Levothyroxine) 50 Mcg Tablet 50 MCG PO QAM (Reported) Metoprolol Tartrate (Metoprolol Tartrate) 25 Mg Tablet 25 MG PO Q12 Prescribed by: HARINI ANGULO DO Rivaroxaban (Xarelto) 15 Mg Tablet 20 MG PO DAILY@17 Prescribed by: HARINI ANGULO DO Rivaroxaban (Xarelto) 20 Mg Tablet 20 MG PO daily at 1700 Prescribed by: HARINI ANGULO DO Simvastatin (Simvastatin) 40 Mg Tablet 40 MG PO HS (Reported) Additional med instructions Please take the Xarelto for your anticoagulation daily. Please note that we have changed you over to Metoprolol to help with controlling the heart rate with your atrial fibrillation Please continue taking your other medications as prescribed. Please make sure to drink <1.5L of water daily in order to treat you SIADH and low sodium Followup Plan Disposition: Home Discharge Diet: Heart Healthy (Low sodium) Discharge Activity: No restrictions Patient Instructions Please follow up with your victim advocate within 1-2 weeks Please follow up with your PCP also. If you have increasing SOB or CP, please return to ER for evaluation. Follow-up Provider: Nell Lamar MD Follow-up with PCP in: 1 week Provider: Wilner Mccarty MD Follow-up in: 1 week Time spent 35 min Attending Statement The patient was seen and examined together with Resident / House-staff on and I agree with the history, exam and plan as outlined in the note above. copies to: Nell Lamar MD; Wilner Mccarty MD, Hong D DO Dec 08, 2016 11:46 Elijah Ponce Dec 09, 2016 17:06
== END 2016-12-08 11:20 | disposition home or self-care (01) | DRG 292 ==
LOC: SED 13:20 → MPC 16:48
PROVIDERS: ADMIT Internal Medicine; ATTEND Internal Medicine
DX: I50.1 Left ventricular failure, unspecified (principal); E22.2 Syndrome of inappropriate secretion of antidiuretic hormone; I48.91 Unspecified atrial fibrillation; I10 Essential (primary) hypertension; E78.5 Hyperlipidemia, unspecified; E03.9 Hypothyroidism, unspecified; I42.0 Dilated cardiomyopathy; I27.2 Other secondary pulmonary hypertension